=== PATIENT | male | born 1990 | race Caucasian/White ===

== ENCOUNTER → 2016-09-15 | Day surgery (SDC) | payer BC ==
[~2016-09-15] VITALS: Ht 175.3 cm; Wt 79.2 kg
[~2016-09-15] MED LIST: *MEPERIDINE 25 MG INJ VIAL PERIprocedural Use ONLY ONE; BUPIVACAINE HCL PF 0.25% 30 ML VIAL ONE; CHLORHEXIDINE GLUCONATE 2 % 1 PACK (2 CLOTHS) TOPICAL PRN; CHLORHEXIDINE GLUCONATE 4% SOLN 120 ML BTL TOPICAL SCH; DO NOT ADM ANY ANTICOAGULANT DRUGS PRN; FAMOTIDINE 20 MG/2 ML VIAL ONE; GENTAMICIN SULFATE 80 MG/2 ML VIAL ONE; INSULIN HUMAN REGULAR 1,000 UNITS/10 ML VIAL SQ PRN; KETOROLAC TROMETHAMINE 30 MG/ML (IVP) VIAL IVP ONE; LACTATED RINGER'S 1000 ML IV PRN; METOPROLOL TARTRATE 25 MG TAB PO PRN; MIDAZOLAM HCL 2 MG/2 ML VIAL ONE; MORPHINE SULFATE 4 MG/ML INJ IV PUSH PRN; NEOSTIGMINE 3 MG/3 ML SYR IV ONE; ONDANSETRON HCL 4 MG/2 ML VIAL IV PRN; ONDANSETRON HCL 4 MG/2 ML VIAL IV PUSH ONE; PERC5TAB12 PO; POVIDONE IODINE 5% (ANTISEPSIS KIT) 4 APPLICATIONS EACH NARE PRN; PROPOFOL 200 MG/20 ML AMP IV ONE; SODIUM CHLORID 0.9% 500 ML IV PRN; SODIUM CHLORIDE 0.9% FLUSH 10 ML FLUSH IV FLUSH PRN; SODIUM CHLORIDE 0.9% FLUSH 10 ML FLUSH IV FLUSH SCH; VANCOMYCIN 1000 MG/NS 250 ML (for <70 kg) IV SCH; ceFAZolin 2 GM PREMIX 50 ML IV SCH; ceFAZolin INJ 1,000 MG VIAL IV ONE; fentaNYL CITRATE 250 MCG/5 ML AMP ONE; oxyCODONE/ACETAMINOPHEN 5 MG/325 MG TAB PO PRN
[2016-09-15 11:15] VITALS: BP 109/60; PULSE 51; RESP 16; TEMP 97.9; O2SAT 51
--- NOTE | 2016-09-15 14:51 | PD.OP ---
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 Surgeon: Bairon Chew Blender/Braze Applicator(s): Staff Resident Surgeon: None Operation and Findings: PROCEDURE: After all potential complications, risks, as well as anticipated benefits of the above-named procedure were discussed at length with the patient , informed consent was obtained. The operative extremity was then confirmed with the patient, the operative surgeon, anesthesia, and nursing staff. The patient was then transferred to the operative table and placed in the prone position. All bony prominences were well padded at this time. A nonsterile tourniquet was placed on the left lower extremity. The lower extremity was sterilely prepped and draped in the usual sterile fashion. The extremity was elevated and exsanguinated using an Esmarch and the tourniquet was inflated to 250 mmHg. After all bony and soft tissue land aburto were identified, a longitudinal incision was made in the plantar surface of the foot along the second ray overlying the possible mass. Dissection carefully taken down through subcutaneous tissue. A rather large osteochondroma was identified. I carefully dissected circumferentially around the mass while taking care not to injure the neurovascular bundles. Using a saw the mass was divided in half. The stalk was identified. Using a rongeur the mass was completely excised off its stalk. The tissue was sent to pathology. Fluoroscopy confirmed complete excision of the osteochondroma. The wound was thoroughly irrigated. Hemostasis was obtained. The wound was closed with 3-0 PDS suture and 2-0 nylon at the skin. Sterile dressing was applied. A well as a short length well padded splint was placed. The patient was transferred back Postanesthesia Care Unit. The patient tolerated the procedure well. There were no complications. Bairon Chew Jr., MD September 15, 2016 14:51
[2016-09-15 16:37] VITALS: BP 107/59; PULSE 65; RESP 16; TEMP 97.8; O2SAT 100
== END | disposition home or self-care (01) ==
LOC: HSDC 10:36
PROVIDERS: ATTEND Orthopaedic Surgery
DX: D16.32 Benign neoplasm of short bones of left lower limb (principal)
CPT/HCPCS: 01480; 28104; 76000; 86850; 86900; 86901; 88305; E0113; J0690; J1580; J1885; J2175; J2250; J2405; J2710; J3010; J3370; J7050; J7120